=== PATIENT | male | born 1950 | race African-American/Black ===

== ENCOUNTER 2017-01-21 03:31 | Inpatient (IN) | payer OTHER ==
[~2017-01-21] VITALS: Ht 170.2 cm; Wt 69.8 kg
--- NOTE | ~2017-01-21 | HEMODYNAMI ---
PATIENT:OCHOA FARAH JR MEDICAL RECORD: [id number] : [birth year] [address] [id number] ADMISSION DATE: 01/21/17 Generatedon:01/22/201712:53 Patient name: OCHOA FARAH Patient #: [id number] SSN: DO B: 1950 Date of study: 01/22/2017 Page: Of Hemodynamic Procedure Report Patient Data Patient Demographics Procedure consent was obtained First Name: OCHOA Gender: Male Last Name: SOFI Suffix: Patient #: [id number] : 1950 Age: 66 year(s) Accession #: Race: Black [id number] Additional ID: [id number] Contact details [address]: [address] [place] [address] State: [place] City: [place] Zip code: [address] Past Medical History Allergies: No known allergies Admission Admission Data Admission Date: 01/21/2017 Admission Time: 6:16 Room #: [facility] Lab Results Lab Result Date: 01/22/2017 Lab Result Time: 0:00 Biochemistry Name Units Result Min Max Creatinine mg/dl 1.6 --(----)-* 0.6 1.3 CBC Name Units Result Min Max Hemoglobin g/dl 15.8 --(--*-)-- 13.5 17.5 Procedure Procedure Types Cath Procedure Diagnostic Procedure [facility] w/Coronaries PCI Procedure Coronary Stent Initial Miscellaneous Procedures Moderate Sedation up to 30 minutes Procedure Description Procedure Date Procedure Date: 01/22/2017 Procedure Start Time: 12:31 Procedure End Time: 12:53 Procedure Staff Name Function Onofre Benitez MD Performing Physician Torri Vera RT Scrub Dafne Penny RN Nurse Raven Araujo RT Monitor Procedure Data Cath Procedure Fluoroscopy Diagnostic fluoroscopy Total fluoroscopy Time: 4.1 time: 4.1 min min Diagnostic fluoroscopy Total fluoroscopy dose: 440 dose: 440 mGy mGy Contrast Material Contrast Material Type Amount (ml) Isovue 300 74 Entry Location Entry Primary Successful Side Size Upsize Upsize Entry Closure Succes sful Closure Location (Fr) 1 (Fr) 2 (Fr) Remarks Device Remarks Radial Right 6 Fr artery Short Femoral Left 7 Fr 7 Fr 7 Fr Exoseal artery Short Long Short Estimated blood loss: 10 ml Diagnostic catheters Device Type Used For End Catheter Placement Cordis RBL 4 catheter (NO LV Angiography CHARGE) Cordis RBL 4 catheter (NO Left Coronary CHARGE) Angiography Cordis RBL 4 catheter (NO Right Coronary CHARGE) Angiography Diagnostic Infinity 5Fr Procedure 3DRC catheter Procedure Complications No complications Procedure Medications Medication Administration Route Dosage Oxygen NC 2 l/min Lidocaine 2% added to field 20 Heparin Flush Bag added to field 2 bags (1000units/500ml NS) 0.9% NaCl I.V. 200 ml/hr Versed I.V. 0.5 mg Fentanyl I.V. 25 mcg Versed I.V. 0.5 mg Fentanyl I.V. 25 mcg Heparin Bolus I.V. 4000 units Radial Cocktail I.A. 1 syringe (Verapomil 2mg/Nitro 400mcg/Heparin 1500units) Hemodynamics Rest HGB: 15.8 (g/dl) Heart Rate: 71 (bpm) Snapshots Pre Cath Intra NCS Post Cath Vital Signs Time Heart Resp SPO2 NIBP (mmHg) Rhythm Pain Sedation Rate (ipm) (%) Status Level (bpm) 12:02:46 70 27 96 121/85(97) NSR 0 (11) 9(A) , No pain 12:06:50 71 21 98 119/86(104) NSR 0 (11) 9(A) , No pain 12:10:51 71 23 96 115/90(98) NSR 0 (11) 9(A) , No pain 12:14:54 70 20 97 121/85(100) NSR 0 (11) 9(A) , No pain 12:19:02 69 20 96 115/74(97) NSR 0 (11) 9(A) , No pain 12:23:10 68 20 96 108/67(95) NSR 0 (11) 9(A) , No pain 12:27:10 68 23 98 112/82(99) NSR 0 (11) 9(A) , No pain 12:31:11 70 21 98 106/80(97) NSR 0 (11) 9(A) , No pain 12:35:11 72 20 95 96/78(83) NSR 0 (11) 9(A) , No pain 12:39:11 71 21 93 96/68(85) NSR 0 (11) 9(A) , No pain 12:43:10 69 20 96 108/72(87) NSR 0 (11) 9(A) , No pain 12:47:14 72 21 96 88/72(81) NSR 0 (11) 9(A) , No pain 12:50:57 74 18 99 96/68(82) NSR 0 (11) 9(A) , No pain Medications Time Medication Route Dose Verified Delivered Reason Notes Effectiveness by by 12:01:56 Oxygen NC 2 l/min Onofre Buffie used for Eli Penny RN procedure 12:02:03 Lidocaine 2% added 20ml Onofre Buffie used for to vial Eli Penny RN procedure field 12:02:08 Heparin Flush added 2 bags Onofre Buffie used for Bag to Eli Penny RN procedure (1000units/500ml field NS) 12:02:16 0.9% NaCl I.V. 200 Onofre Headie Per ml/hr Eli Penny RN physician 12:26:21 Versed I.V. 0.5 mg Onofre Buffie for sedation Eli Penny RN 12:26:27 Fentanyl I.V. 25 mcg Onofre Leos for sedation Eli Penny RN 12:32:36 Versed I.V. 0.5 mg Onofre Buffie for sedation Eli Penny RN 12:32:40 Fentanyl I.V. 25 mcg Onofre Leos for sedation Eli Penny RN 12:33:53 Radial Cocktail I.A. 1 Onofre Adhikari for (Verapomil syringe Eli Benitez MD vasodilation 2mg/Nitro 400mcg/Heparin 1500units) 12:42:31 Heparin Bolus I.V. 4000 Onofre Buffie for sedation verifie d units Eli Penny RN with dr benitez Procedure Log Time Note 11:36:40 Raven Araujo RT(R) sent for patient. Start room use. 11:36:41 Time tracking: Regular hours 11:36:45 Plan of Care:Hemodynamics will remain stable., Cardiac rhythm will remain stable., Comfort level will be maintained., Respiratory function will remain adequate., Patient/ family verbilizes understanding of procedure., Procedure tolerated without complication., Recovers from procedure without complications.. 12:01:39 Patient received from PCU to CCL 2 Alert and oriented. Tansferred to table in Supine position. 12:01:40 Warm blankets applied, and shari hugger turned on for patient comfort. 12:01:40 Correct patient and procedure confirmed by team. 12:01:41 Signed procedure consent form obtained from patient. 12:01:42 ECG and BP/O2 sat monitors applied to patient. 12:01:43 Vital chart was started 12:01:44 Full Disclosure recording started 12:01:56 Oxygen 2 l/min NC was given by Dafne Penny RN; used for procedure; 12:02:03 Lidocaine 2% 20ml vial added to field was given by Dafne Penny RN; used for procedure; 12:02:08 Heparin Flush Bag (1000units/500ml NS) 2 bags added to field was given by Dafne Penny RN; used for procedure; 12:02:16 0.9% NaCl 200 ml/hr I.V. was given by Dafne Penny RN; Per physician; 12:03:35 H&P Date Dictated: 01/22/2017 Within 30 days and on chart.. 12:03:37 Pre-procedure instructions explained to patient. 12:03:37 Pre-op teaching completed and patient verbalized understanding. 12:03:38 Family in waiting room. 12:03:40 Patient NPO since Midnight. 12:03:48 Patient allergic to No known allergies 12:03:54 Is the patient allergic to Iodine/contrast media? No. 12:03:55 Is patient on blood thinner?Yes 12:03:58 ACC The patient was administered the following blood thiners within the last 24 hours: ACCPlavix 12:04:02 Patient diabetic? No. 12:04:06 Previous problem with sedation/anesthesia? No ? 12:04:08 Snore? No 12:04:09 Sleep apnea? No 12:04:10 Deviated septum? No 12:04:11 Opens mouth fully? Yes 12:04:11 Sticks out tongue? Yes 12:04:14 Airway obstruction? No ? 12:04:15 Dentures? No ? 12:04:19 Pre procedure: left dorsailis pedis pulse 2+ Normal; easily identifiable; not easily obliterated 12:04: Modified Martin's test Ulnar < 7 seconds 12:04:23 Patient pain scale 0/10 ?. 12:04:30 IV patent on arrival in left forearm with 0.9% NaCl at [facility]. 12:05:29 Lab Result : Creatinine 1.6 mg/dl 12:05:29 Lab Result : Hemoglobin 15.8 g/dl 12:05:33 Lab results completed and on chart. 12:05:38 Right Radial & Left Groin area was prepped with chlora-prep and draped in sterile fashion 12:05:40 Alarms reviewed by R. N. 12:05:40 Sharps counted by scrub and verified by R.N. 12:05:42 Use device set Radial Dx 12:05:43 Acist Syringe opened to sterile field. 12:05:43 Medline Cath Pack opened to sterile field. 12:05:44 Bag Decanter opened to sterile field. 12:05:44 Terumo 6Fr Slender Glidesheath opened to sterile field. 12:05:44 St Darrell 260cm J .035 wire opened to sterile field. 12:05:45 Acist Hand Control opened to sterile field. 12:05:45 Acist Manifold opened to sterile field. 12:05:46 Tegaderm 4 x 4 opened to sterile field. 12:07:52 Baseline sample Acquired. 12:10:01 Zero performed for pressure channel P1 12:10:06 Zero performed for pressure channel P1 12:10:10 Zero performed for pressure channel P1 12:10:35 Zero performed for pressure channel P1 12:24:44 Final Timeout: patient, procedure, and site verified with staff and physician. All members of the team are in agreement. 12:24:47 Right Radial site verified by team. 12:24:50 Physical assessment completed. ASA score P 3 - A patient with severe systemic disease as per Onofre Bneitez MD. 12:24:53 Sedation plan: IV Moderate Sedation Versed, Fentanyl 12::21 Versed 0.5 mg I.V. was given by Dafne Penny RN; for sedation; 12::27 Fentanyl 25 mcg I.V. was given by Dafne Penny RN; for sedation; 12:31:20 Procedure started. 12:31:47 Local anesthetic to right radial artery with Lidocaine 2% by Onofre Benitez MD.INITIAL ACCESS ONLY 12:32:36 Versed 0.5 mg I.V. was given by Dafne Penny RN; for sedation; 12:32:40 Fentanyl 25 mcg I.V. was given by Dafne Penny RN; for sedation; 12:32:46 A 6 Fr Short sheath was inserted into the Right Radial artery 12:33:53 Radial Cocktail (Verapomil 2mg/Nitro 400mcg/Heparin 1500units) 1 syringe I.A. was given by Onofre Benitez MD; for vasodilation; 12:33:54 A Cordis RBL 4 catheter (NO CHARGE) was advanced over the wire and used for LV Angiography. 12:34:34 LV gram done using BHAT 12:34:35 LV hemodynamics recorded. 12:34:38 Injector settings: Ml/sec: 5, Volume: 15, 12:34:42 EF : 60 % 12:34:48 A Cordis RBL 4 catheter (NO CHARGE) was advanced over the wire and used for Left Coronary Angiography. 12:35:45 A Cordis RBL 4 catheter (NO CHARGE) was advanced over the wire and used for Right Coronary Angiography. 12:36:01 Catheter removed. 12:36:33 Coub BasixCompak Inflation Kit opened to sterile field. 12:36:35 Terumo 7Fr [place]omb Sheath opened to sterile field. 12:36:35 Farrar Whisper J 300cm 0.014 guide wire opened to sterile field. 12:36:51 Local anesthetic to left femerol artery with Lidocaine 2% by Onofre Benitez MD.ADDITIONAL ACCESS 12:37:03 A 7 Fr Short sheath was inserted into the Left Femoral artery 12:38:59 A Diagnostic Infinity 5Fr 3DRC catheter was advanced over the wire and used for Procedure. 12:39:49 Sheath upsized to a 7 Fr Long. 12:40:01 Arrow 7Fr 45cm Sheath opened to sterile field. 12:40:08 Medtronic Launcher 7Fr AR 2.0 guide catheter opened to sterile field. 12:40:50 7 Fr AR 2.0 guide catheter was inserted over the wire 12:42:31 Heparin Bolus 4000 units I.V. was given by Dafne Penny RN; for sedation; verified with dr benitez 12:43:01 Choice PT ES wire advanced. 12:44:17 Inflation number: 1 A Euphora 4.0 x 20 Balloon was prepped and advanced across the Mid RCA, then inflated to 9 DONTRELL for 0:06 (min:sec). 12:44:32 Balloon removed over the wire. 12:45:55 Inflation Number: 2 A Medtronic Integrity 4.0 X 22 stent was prepped and advanced across the Mid RCA. The stent was deployed at 0 DONTRELL for 0:08 (min:sec). 12:46:07 Stent catheter was removed intact over wire. 12:46:07 Wire removed. 12:46:08 Guide catheter removed. 12:46:23 Cordis 7Fr Exoseal opened to sterile field. 12:46:30 Sheath upsized to a 7 Fr Short. 12:46:39 Sheath removed intact; hemostasis achieved with Exoseal to the Left Femoral artery. 12:46:41 Procedure ended.(Physican Out) 12:47:03 Fluoroscopy time 04.10 minutes. 12:47:13 Fluoroscopy dose: 440 mGy 12:47:13 Flurop Dose total: 440 12:47:16 Contrast amount:Isovue 300 74ml. 12:47:17 Sharps counted by scrub and verified by R.N. 12:47:19 Insertion/operative site no bleeding no hematoma. 12:47:23 TR band inflated with 12cc of air. 12:47:30 Terumo TR Band Standard opened to sterile field. 12:47:36 Post-op/insertion site Left Femoral artery dressed using a 4 x 4 and Tegaderm. 12:47:41 Post left femerol artery:stable, clean and dry 12:47:47 Post right radial artery:stable, clean and dry 12:47:57 Post Procedure Pulses reassessed and unchanged 12:48:02 Post-procedure physical assessment completed. ASA score P 3 - A patient with severe systemic disease as per Onofre Benitez MD. 12:48:04 Post procedure rhythm: unchanged. 12:48:08 Estimated blood loss: 10 ml 12:48:09 Post procedure instruction explained to patient.Patient verbalizes understanding. 12:48:10 Patient needs reinforcement of post procedure teaching. 12:48:18 Procedure type changed to Cath procedure, Diagnostic procedure, LHC, LHC w/Coronaries, PCI procedure, Coronary Stent Initial, Miscellaneous Procedures, Moderate Sedation up to 30 minutes 12:48:23 Procedure Complication : No complications 12:48:24 See physician's report for complete and final results. 12:52:59 Procedure and supply charges have been captured, reviewed, submitted and are correct. 12:53:00 Vital chart was stopped 12:53:02 Report given to PCU. 12:53:05 Patient transfered to PCU with Bed. 12:53:07 Procedure ended. 12:53:07 Full Disclosure recording stopped 12:53:13 End room use (Document Last) Intervention Summary Intervention Notes Time ActionType Lesion and Equipment Action# Pressure Duration Attributes Used 12:44:17 Inflate Mid RCA Euphora 1 9 00:06 balloon 4.0 x 20 Balloon 12:45:55 Place stent Mid RCA Medtronic 2 0 00:08 Integrity 4.0 X 22 stent Device Usage Item Name Manufacture Quantity Catalog Hospital Part Current Minimal Lot# / Number Charge Number Stock Stock Serial# Code Acist Acist 1 12742 [id number] 145421 566580 20 Syringe Medical Systems Inc Medline Cardinal 1 [id number] 692671 80645 863055 5 Cath Pack Health Bag Microtek 1 2002S 241391 73181 839039 5 [employer] Inc. Terumo 6Fr Terumo 1 [id number] 173606 633447 141517 [address] Dar[address] St Darrell 1 [id number] 031949 236939 767996 30 260cm J .035 wire Acist Hand Acist 1 15717 356956 733509 013862 5 Control Medical Systems Inc Acist Acist 1 91267 576317 279397 298307 5 Manifold Medical Systems Inc Tegaderm 4 3M 1 1626W 653822 891354 360510 5 x 4 Cordis RBL Cardinal 1 [id number] 126399 685058 5 4 catheter Health (NO CHARGE) Merit Merit 1 [id number] 036782 645333 866356 15 Mob[employer]ixSou[employer] Medical Inflation Kit Terumo 7Fr Terumo 1 [id number] 574606 731984 786941 5 Macomb Sheath Farrar Farrar 1 [id number] 559057 706186 659799 5 Whisper J Vascular 300cm 0.014 guide wire Diagnostic Cardinal 1 [id number] 102462 152738 290904 9 [employer] 5Fr 3DRC catheter Arrow 7Fr Teleflex 1 [id number] 340146 695273 939471 1 45cm Sheath Medtronic Medtronic 1 [id number] 664897 385014 315199 0 Launcher 7Fr AR 2.0 guide catheter Euphora 4.0 Medtronic 1 [id number] 410894 431403 159993 5 [id number] x 20 Balloon Medtronic Medtronic 1 [id number] 115828 510583 875065 7 [id number] Integrity 4.0 X 22 stent Cordis 7Fr Cardinal 1 EX700 357976 229908 201089 5 Librestream Technologies Inc.umo TR Terumo 1 [id number] 068860 979820 913608 40 Band Standard Signature Audit [place] Stage Time Signature Unsigned Intra-Procedure 01/22/2017 Raven 12:53:31 PM Counts RT(R) Signatures Monitor : Raven Signature : Counts RT Date : Time : [place] [address] [place] [address]
[~2017-01-21 03:31] MED LIST: ANUSOL-HC25 MG RC; LEVAQUIN500 MG PO; NICODERM C1 PATCH .2 TRANSDERM; NORVASC2.5 MG PO
[2017-01-21 04:33] LABS: BASOPHILS 0.2 % (0.0-2.0); EOSINOPHILS 0.5 % (0-7); HEMATOCRIT 44.2 % (42.0-54.0); HEMOGLOBIN 13.7 g/dL (13.5-17.5); IMMATURE GRANULOCYTES 0.2 % (0-5); LYMPHOCYTES 11.5 % (15-50); MCH 23.2 pg (26.0-34.0); MCV 74.8 fL (80.0-100.0); MEAN PLATELET VOLUME 11.1 fL (7.4-10.4); MONOCYTES 7.5 % (2-11); NEUTROPHILS 80.1 % (40-80); PLATELET COUNT 226 10x3/uL (130-400); RBC 5.91 10x6/uL (4.20-6.10); RDW 17.1 % (11.5-14.5); WBC 8.8 10x3/uL (4.8-10.8)
[2017-01-21 04:40] LABS: ALBUMIN 3.9 g/dL (3.4-5.0); ANION GAP 16.4 mmol/L (8-16); BILIRUBIN - TOTAL 0.74 mg/dL (0.2-1.3); CALCIUM 9.1 mg/dL (8.5-10.1); CARBON DIOXIDE 25.3 mmol/L (21.0-32.0); CREATININE - SERUM 1.2 mg/dL (0.6-1.3); POTASSIUM - SERUM 3.7 mmol/L (3.5-5.1); PROTEIN - SERUM 7.8 g/dL (6.4-8.2)
[2017-01-21 04:48] LABS: MAGNESIUM - SERUM 1.8 mg/dL (1.8-2.4); TROPONIN-I 0.032 ng/mL (0.000-0.060)
--- NOTE | 2017-01-21 07:22 | NUR ---
RECEIVED PATIENT FROM ER. WILL ASSESS AND CARRY OUT ORDERS.
[2017-01-21 07:44] VITALS: BP 148/96; BMI 24.2
[2017-01-21 08:49] VITALS: BP 148/96
[2017-01-21 12:45] VITALS: BP 149/93
[2017-01-21 13:41] VITALS: Ht 170.2 cm; Wt 69.8 kg
--- NOTE | 2017-01-21 14:47 | NUR ---
Patient Name: OCHOA FARAH Admission Status: ER Accout number: [id number] Admission Date: 01-21-2017 : 1950 Admission Diagnosis: Attending: DULCE Current LOS: 1 Anticipated DC Date: Planned Disposition: [place] facility Primary Insurance: [employer] Discharge Planning Comments: * Is the patient Alert and Oriented? Yes 0 * How many steps to enter\exit or inside your home? 6 0 * PCP [facility] [place] NO LOCAL PRIMARY DOCTOR 0 * Pharmacy [facility]. 0 * Preadmission Environment Home with Family 0 * ADLs Independent 0 * Equipment None 0 * Other Equipment [facility] - MEDICAL EQUIPMENT PROVIDER 0 * List name and contact numbers for known caregivers / representatives who currently or will assist patient after discharge: JANE MARTIN, MOTHER, 0 * Community resources currently utilized None 0 * Please name any agencies selected above. NONE 0 * Additional services required to return to the preadmission environment? No 0 * Can the patient safely return to the preadmission environment? Yes 0 * Has this patient been hospitalized within the prior 30 days at any hospital? No 0 CM MET WITH PT IN ROOM TO DISCUSS DISCHARGE PLANNING AND NEEDS. PT REPORTS LIVING AT HOME INDEPENDENTLY WITH HIS MOTHER AND CHILDREN. PT HAS NO MEDICAL EQUIPMENT AND NO OUTSIDE SERVICES ASSISTING IN THE HOME. CM DISCUSSED AVAILABILITY OF HOME HEALTH, REHAB SERVICES AND MEDICAL EQUIPMENT. PT DENIES DISCHARGE NEEDS, PT REPORTS HIS FAMILY OR A FRIEND WILL PICK HIM UP FOR DISCHARGE HOME. PT REPORTS PRIMARY CARE FROM [facility] IN [place], WHEN HE RECEIVES PRIMARY CARE. PT REPORTS HIS INSURANCE COMPANY SENT HIM A CARD WITH DR. MCLEAN'S NAME ON IT HIS DOCTOR. CM EXPLAINED THAT UNLESS PT HAS SEEN DR. MCLEAN IN CLINIC AND HE HAS ACCEPTED PT, DR. MCLEAN IS NOT HIS PRIMARY CARE DOCTOR. CM PROVIDED PT WITH [facility] INFORMATION TO ASSIST WITH LOCATING [facility] C[facility]IDE [facility] IF THAT IS WHAT THE PT DESIRES. PT REPORTS HE WANTS TO TRANSFER TO [facility] H[facility] IF AND WHEN THEY HAVE A BED AVAILABLE. BRI DAMON HAS CALLED [facility] EXPEDITOR AND PROVIDED PT INFORMATION WITH TRANSFER REQUEST, THERE WAS NO [facility] BED AVAILABLE. CM TO CONTINUE TO FOLLOW AND ASSIST NEEDED. Information Technology Director: Ferdinand Felix
[2017-01-21 15:44] VITALS: BP 140/98
--- NOTE | 2017-01-21 16:52 | NUR ---
SCDS APPLIED TO GIANA LE. RESTING IN BED. SOME SOB.
--- NOTE | 2017-01-21 19:35 | NUR ---
RECEIVED REPORT, IV-LAC, HAS SCD ON, DENIES ANY NEEDS, CALL LIGHT IN REACH, WILL CONTINUE TO MONITOR
[2017-01-21 20:00] VITALS: BP 160/99
[2017-01-22] VITALS: BP 148/86
--- NOTE | 2017-01-22 00:14 | NUR ---
SPECIAL TAX AUDITOR AT BEDSIDE TO OBTAIN VITALS, CALL LIGHT IN REACH. WILL CONTINUE WITH PLAN OF CARE.
[2017-01-22 04:00] VITALS: BP 110/80
[2017-01-22 04:58] LABS: BASOPHILS 0.1 % (0.0-2.0); EOSINOPHILS 0 % (0-7); HEMATOCRIT 50.1 % (42.0-54.0); HEMOGLOBIN 15.8 g/dL (13.5-17.5); IMMATURE GRANULOCYTES 0.4 % (0-5); LYMPHOCYTES 8.2 % (15-50); MCH 23.5 pg (26.0-34.0); MCHC 31.5 g/dL (31.0-37.0); MCV 74.4 fL (80.0-100.0); MEAN PLATELET VOLUME 11.4 fL (7.4-10.4); MONOCYTES 12.7 % (2-11); NEUTROPHILS 78.6 % (40-80); PLATELET COUNT 233 10x3/uL (130-400); RDW 17.3 % (11.5-14.5); WBC 8.4 10x3/uL (4.8-10.8)
[2017-01-22 05:08] LABS: RBC 6.73 10x6/uL (4.20-6.10)
[2017-01-22 05:36] LABS: CALCIUM 9.5 mg/dL (8.5-10.1); CARBON DIOXIDE 27.2 mmol/L (21.0-32.0); CHLORIDE - SERUM 100 mmol/L (98-107); CKMB 16.9 U/L (0.0-3.6); GLUCOSE 136 mg/dL (74-106); POTASSIUM - SERUM 3.8 mmol/L (3.5-5.1); PRO BNP 712 pg/mL (0-125); SODIUM 140 mmol/L (136-145)
[2017-01-22 05:40] LABS: CALC OSMOLALITY 287 mosm/kg (275-300); CREATININE - SERUM 1.6 mg/dL (0.6-1.3); UREA NITROGEN 31 mg/dL (7-18); eGFR NON AFRICAN AMERICAN 46 mL/min (90-120)
[2017-01-22 05:41] LABS: TROPONIN-I 0.074 ng/mL (0.000-0.060)
--- NOTE | 2017-01-22 07:21 | NUR ---
PT SITTING UP IN BED DENIES NEEDS WILL CONT TO MONITOR.
--- NOTE | 2017-01-22 07:34 | HP ---
PATIENT: OCHOA FARAH JR MEDICAL RECORD: [id number] ACCOUNT: [id number] LOCATION:[address] : [birth year] ADMISSION DATE: 01/21/17 HISTORY AND PHYSICAL EXAMINATION Admission History and Physical HISTORY OF PRESENT ILLNESS: A 66-year-old -L[place] male presented to the Emergency Room early this morning with a complaint of chest pain, shortness of breath that has been happening off and on for the past several weeks. He has a remote history of coronary artery disease, had 2 stents placed. 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 He is rare to seek medical care and again [facility], but has not been there in sometime as well. MEDICATIONS: No current medications. ALLERGIES: No known drug allergies. REVIEW OF SYSTEMS: GENERAL: No acute change in weight or appetite. HEENT: No cephalgia, visual changes, tinnitus, epistaxis, or dysphagia. CARDIOVASCULAR: Episodic chest pain, pressure, known history of coronary artery disease, also shortness of breath, worse for the past 2 weeks, much worse this morning, leading to his presentation to the ER. PULMONARY: Denies hemoptysis. Denies night sweats. GASTROINTESTINAL: Denies hematemesis, hematochezia, or melena. GENITOURINARY: Denies any acute changes. History as above. ENDOCRINE: Denies polyuria, polydipsia, or polyphagia. MUSCULOSKELETAL: No acute changes. PHYSICAL EXAMINATION VITAL SIGNS: Temperature 99.9, blood pressure 148/96, respirations 22, heart rate 104, and O2 sats 93% with 2 liters via nasal cannula. HEENT: Head normocephalic and atraumatic. Eyes: Pupils equally round, reactive to light and accommodation. Extraocular muscles intact. Conjunctiva was not injected. Ears: Canals patent, TMs are intact. Nose: Nares patent without drainage. Throat: No erythema. No exudates. NECK: Supple. No lymphadenopathy. HEART: Regular and tachycardic. LUNGS: Clear to auscultation bilaterally, slightly diminished at the bases. No rhonchi. No egophony. ABDOMEN: Soft and nontender. Bowel sounds all 4 quadrants. EXTREMITIES: Present times 4. No edema. NEUROLOGIC: No focal deficits. SKIN: Warm and dry. No rash. DIAGNOSTIC DATA: Chest x-ray, mild central pulmonary vascular congestion and interstitial edema. EKG, nonspecific ST changes, rate 100, poor R-wave progression, abnormal EKG. LABORATORY DATA: CBC: White count 8.8, hemoglobin 13.7, hematocrit 44.2, and platelets 226. Chemistry shows a sodium of 139, potassium 3.7, chloride 101, bicarbonate 25.3, BUN 10, and creatinine 1.2. LFTs normal. ProBNP is slightly HISTORY AND PHYSICAL [id number] OCHOA FARAH JR elevated at 368. Troponin is 0.032. CK is 140. ASSESSMENT AND PLAN: 1. Unstable angina with known history of coronary artery disease, remote stents, consult cardiology, cycle enzymes. 2. Mild congestive heart failure. Cautious diuresis. 3. Hypertension. Lisinopril started. With the tachycardia, we will add low-dose beta-pop. 4. Prostate cancer, unclear of his current status. We will check PSA with this hospitalization. The patient is admitted as med on, unassigned medicine will follow accordingly. TRANSINT:[id number] Voice Confirmation ID: [id number] DOCUMENT ID: [id number] SHAMEKA GUTIERREZ DO at 0734 CC: [id number] DICTATION DATE: 01/21/17 1147 AVIATION TECHNICIAN AIRCRAFT: 01/21/17 1227 [place] [address]
[2017-01-22 07:49] VITALS: BP 133/71
--- NOTE | 2017-01-22 13:17 | NUR ---
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 TWO SITES R WRIST CDI& L GROIN CDI WITH NO EDEMA ON EITHER. DROWSY BUT AROUSEABLE. VS STABLE. WARM AND DRY O2 ON @ 2L. MONITOR ON WITH RATE OF 57 SR WITH INVERTED T WAVE. WILL CONTINUE TO MONITOR
--- NOTE | 2017-01-22 13:48 | NUR ---
PT VS WNL. PT R WRIST TR BAND SITE STILL WNL. DENIES NEEDS.
--- NOTE | 2017-01-22 14:56 | NUR ---
PT VS STILL WNL. PT STILL LETHARGIC BUT ARROUSES EASILY. PT R WRIST SITE WNL. PT LEFT GROIN SITE WNL.
--- NOTE | 2017-01-22 18:17 | NUR ---
RELEASED 6CC OF AIR FROM TR BAND NO S/S BLEEDING PT VS STILL WNL. PT SITTING UP IN BED. LEFT GROIN SITE STILL WNL. VISITOR IN ROOM. PT DENIES NEEDS AT THIS TIME
[2017-01-22 20:00] VITALS: BP 112/75
[2017-01-23] VITALS: BP 116/78
[2017-01-23 04:00] VITALS: BP 89/67
[2017-01-23 06:17] LABS: BASOPHILS 0.3 % (0.0-2.0); EOSINOPHILS 0 % (0-7); HEMOGLOBIN 14.5 g/dL (13.5-17.5); IMMATURE GRANULOCYTES 0.3 % (0-5); LYMPHOCYTES 14.1 % (15-50); MCH 23.6 pg (26.0-34.0); MCHC 31.5 g/dL (31.0-37.0); MCV 74.8 fL (80.0-100.0); MEAN PLATELET VOLUME 11.1 fL (7.4-10.4); MONOCYTES 15.1 % (2-11); NEUTROPHILS 70.2 % (40-80); PLATELET COUNT 204 10x3/uL (130-400); RBC 6.15 10x6/uL (4.20-6.10); RDW 17.4 % (11.5-14.5); WBC 6.9 10x3/uL (4.8-10.8)
[2017-01-23 06:38] LABS: ANION GAP 17.1 mmol/L (8-16); CARBON DIOXIDE 21.9 mmol/L (21.0-32.0); CREATININE - SERUM 1.8 mg/dL (0.6-1.3)
[2017-01-23] MEDS ORDERED: PLAVIX75 MG PO (07:23)
[2017-01-23] MEDS ORDERED: TENORMIN25 MG PO (07:24)
[2017-01-23] MEDS ORDERED: ASPIRIN81 MG PO (07:24)
--- NOTE | 2017-01-23 07:33 | NUR ---
PT SITTING UP IN BED DENIES NEEDS WILL CONT TO MONITOR.
[2017-01-23 08:13] VITALS: BP 96/66
[2017-01-23 11:52] VITALS: BP 101/70
--- NOTE | 2017-01-23 11:55 | NUR ---
WENT OVER DC PAPERWORK WITH PT PT VERBALIZES UNDERSTANDING. DC TELE DC PIV WITH CATHETER TIP INTACT. PT GETTING DRESSED AND WAITING ON RIDE.
--- NOTE | 2017-01-23 15:11 | NUR ---
Patient Name: OCHOA FARAH Encounter No: [id number] : 1950 Primary Insurance: [employer] Anticipated DC Date: 01-23-2017 Planned Disposition: Home DCP follow-up note: PT DISCHARGED HOME. CM CALLED [place] EXP[facility]OR [facility], , NOTIFIED [facility] AND REMOVED PT FROM TRANSFER LIST. Ferdinand Felix, CASE MANAGEMENT
--- NOTE | 2017-01-23 15:12 | NUR ---
PT RIDE HERE. VOLUNTEER WHEELED PT OUT TO FRONT ENTRANCE.
--- NOTE | 2017-01-27 07:49 | DS ---
PATIENT:OCHOA FARAH JR :50 MEDICAL RECORD: [id number] DISCHARGE SUMMARY ADMISSION DATE: 01/21/17 DISCHARGE DATE: 01/23/17 DATE OF ADMISSION: 01/21/2017 DATE OF DISCHARGE: 01/23/2017 ADMISSION DIAGNOSES: Unstable angina with known history of coronary artery disease, mild congestive heart failure, hypertension, remote history of prostate cancer. DISCHARGE DIAGNOSES: Unstable angina with history of coronary artery disease, hypertension, history of prostate cancer with no signs of reoccurrence. CONSULTS: Dr. Benitez, cardiology. HOSPITAL COURSE: The patient had an uneventful hospital course. He is [facility], rare to seek medical care. Cardiac enzymes were obtained. Mild elevation of BNP. Complained of persistent chest pain and pressure. Cardiology consulted. Echocardiogram obtained. No significant abnormalities. 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 DISPOSITION: Discharged to home in stable and improved condition. FOLLOWUP: Will follow up with the [facility] within the next few weeks for up with cardiology as scheduled. DISCHARGE MEDICATIONS: Per med rec. ACTIVITY: As tolerated. Please see chart for further details. Agree with the assessment by cardiology. TRANSINT:[id number] Voice Confirmation ID: [id number] DOCUMENT ID: [id number] SHAMEKA GUTIERREZ DO at 0749 CC: [id number] DICTATION DATE: 01/23/17 0729 INSURANCE SALES MANAGER: 01/24/17 0038 DIS [place] 01/23/17 [place] [id number]
--- NOTE | 2017-02-02 10:08 | OP ---
PATIENT NAME: OCHOA FARAH JR MEDICAL RECORD: [id number] :50 LOCATION:D.M2 D.2131 ADMISSION DATE:01/21/17 SURGEON: REINALDO FRANCIS MD DATE OF OPERATION: 01/22/2017 PROCEDURES: 1. PTCA stent, RCA. 2. Left heart catheterization. 3. Selective coronary angiography. 4. Left ventriculogram. INDICATIONS: Angina and coronary artery disease. PROCEDURE IN DETAIL: After informed consent was obtained and after detailed explanation of risks, benefits as well as alternative therapies, the patient elected to proceed with angiogram and angioplasty. The left femoral area was prepped and draped in normal sterile fashion. Left femoral artery was cannulated via modified Seldinger technique with placement of a 7-Urdu sheath. All catheters exchanged through this sheath. FINDINGS: The left ventriculogram was performed in standard 30-degree BHAT view, reveals good cardiac wall motion throughout all segments. Overall ejection fraction estimated 60%. SELECTIVE CORONARY ANGIOGRAPHY: 1. Left main showed no significant angiographic disease. 2. Left anterior descending has moderate irregularities, but no flow-limiting stenosis. 3. The left circumflex shows moderate irregularities, but no flow-limiting stenosis. 4. Right coronary has 70%-80% stenosis in the mid vessel after the previously placed stent. PTCA STENT OF THE RIGHT CORONARY: The stent used was a 4.0 x 22 mm Integrity. Result was 0% residual stenosis. OVERALL IMPRESSION: Successful percutaneous transluminal coronary angioplasty stent of the right coronary artery going from 70%-80% initial stenosis to 0% residual. TRANSINT:[id number] Voice Confirmation ID: [id number] DOCUMENT ID: [id number] REINALDO FRANCIS MD at 1008 CC: [id number] DICTATION DATE: 01/22/17 1253 PIN DRAFTER OPERATOR: 01/22/172030 DIS IN 01/23/17 [place] [address]
--- NOTE | 2017-02-02 10:08 | CN ---
PATIENT NAME:OCHOA CURTIS JR MEDICAL RECORD: [id number] : 50 LOCATION:D. D.2131 ADMIT DATE: 01/21/17 ACCOUNT: [id number] CONSULTING PHYSICIAN: REINALDO FRANCIS MD REFERRING PHYSICIAN: SHAMEKA GUTIERREZ DO DATE OF CONSULTATION: 01/21/2017 Cardiology Consultation DIAGNOSES: 1. Unstable angina. 2. Pulmonary edema. 3. Coronary artery disease, previous percutaneous transluminal coronary angioplasty stent. 4. Hypertension. HISTORY OF PRESENT ILLNESS: Mr. Curtis presents with increasing shortness of breath and unstable anginal symptomatology. He has a history of cardiac stenting a number of years ago times 2. His chest pain just began yesterday associated with shortness of breath. His chest x-ray is compatible with pulmonary edema. His troponin is normal. His breathing is still not back to baseline. He has not had any further chest pain today. PHYSICAL EXAMINATION: GENERAL APPEARANCE: Well-nourished, well-developed, appears stated age. Level of distress, comfortable. PSYCHIATRIC: Mental status, alert, normal affect. Orientation, oriented to time, place and person. EYES: Lids and conjunctiva, noninjected. No discharge, no pallor. ENT: Lips, teeth, gums, normal dentition. Oropharynx, no cyanosis, no pallor. NECK: Carotid arteries, bilateral normal upstroke, no bruits, no thrills. JUGULAR VEINS: No jugular venous pressure or distention. CERVICAL LYMPH NODES: Nontender, nonenlarged. THYROID: Not enlarged. Nontender. No nodules. LUNGS: Respiratory effort, unlabored. CHEST: Normal curvature. No thoracic deformity. No chest wall tenderness. Percussion, resonant. Auscultation, clear. No wheezes, no rales, no rhonchi. CARDIOVASCULAR: Precordial exam, nondisplaced. No heaves or pericardial thrills. Rate and rhythm, regular. Heart sounds, normal S1, normal S2. No S3, no gallop, no rub. Systolic murmur, not heard. Diastolic murmur, not heard. EXTREMITIES: No cyanosis, no edema. Peripheral pulses, full and equal in all extremities, except as noted. No bruits appreciated. ABDOMEN: Soft, nondistended. Normal aorta. No bruit. Nontender. No masses. Liver, nontender, no hepatomegaly. Spleen, nontender, no splenomegaly. MUSCULOSKELETAL: No joint tenderness. No joint swelling. No erythema. NEUROLOGICAL: Normal gait, normal strength, normal tone. SKIN: Warm and dry. REVIEW OF SYSTEMS: The patient reports easy bruising but reports no swollen glands. The patient reports no fever, no night sweats, no significant weight gain, no significant weight loss. No significant exercise tolerance. The patient reports no dry eyes, no irritation, no vision change. Patient reports no difficulty hearing and no ear pain. Patient reports no frequent nose bleeds or nose and sinus problems. Patient reports on arm pain on exertion. No shortness of breath while lying down. No history of heart murmur. Patient CONSULT REPORT [id number] OCHOA CURTIS JR reports no cough, no wheezing or coughing up blood. Patient reports no abdominal pain, no vomiting. Normal appetite. No diarrhea and not vomiting blood. No nausea and no constipation. Patient reports no incontinence. No difficulty urinating. No hematuria. No increased frequency. Patient reports no muscle aches. No weakness, no arthralgias, no back pain. No swelling of the extremities. Patient reports no abnormal mole, no jaundice, no rashes. Reports no loss of consciousness. No weakness and no numbness. No seizures, dizziness, or headaches. The patient reports no depression, no sleep disturbance, feeling safe in a relationship and no alcohol abuse. Patient reports on fatigue. Reports no runny nose or sinus pressure. No itching, no hives, and no frequent sneezing. OVERALL IMPRESSION: Unstable anginal symptomatology associated with pulmonary edema. We will get an echocardiogram today for ejection fraction, load him with Plavix, most likely proceed with coronary angiography in the a.m. TRANSINT:[id number] Voice Confirmation ID: [id number] DOCUMENT ID: [id number] REINALDO FRANCIS MD at 1008 CC: [id number] DICTATION DATE: 01/21/17 1244 DIRECT MAIL MANAGER: 01/21/17 1748 DIS IN 01/23/17 [place] [id number] [place] [id number]
--- NOTE | 2017-02-02 10:08 | EC ---
PATIENT:OCHOA FARAH JR DATE OF SERVICE: 01/21/17 SEX: M MEDICAL RECORD: [id number] DATE OF : 50 LOCATION:D.M2 D.213 AGE OF PATIENT: 66 ADMISSION DATE: 01/21/17 REFERRING PHYSICIAN: INTERPRETING PHYSICIAN: REINALDO BENITEZ MD ECHOCARDIOGRAM REPORT ECHO CHARGES 4 ECHO COMPLETE CLINICAL DIAGNOSIS: CHF ECHOCARDIOGRAPHIC MEASUREMENTS (adult normal given) AC root (d.<3.7cm) 3.4 LV Septum d (<1.2 cm> 1.3 Valve Excursion 2.0 LV Septum (systole) 2.0 Left Atria (s.<4.0cm> 3.0 LVPW d(<1.2cm) 1.2 RV (d.<2.3cm) 2.2 LVPW (sytole) 2.0 LV diastole(<5.6CM) 6.0 MV E-F(>70mm/sec) LV systole 3.7 LVOT Diameter 2.2 MV exc.(>10mm) Est.ejection fraction (50-75%) Pericardial Effusion N DOPPLER: LVIT A 83.0 E 45.0 LA RVSP 24.0 LVOT 94.0 AOP1/2T Asc. Ao 137 RVOT 75.0 RA PA 100 AV Gradient Peak 7.5 AV Mean 3.4 AV Area 2.3 MV Gradient Peak 5.9 MV Mean 1.8 MV Area COMMENTS: Lunchroom Food Service Supervisor: Bennett ZAMORAOE Neon Light Installer:1 Dr. Benitez TAPE# PACS DATE OF SERVICE: 01/21/2017 Echocardiogram FINDINGS: 1. Left ventricular chamber size is mildly dilated. Left ventricular systolic function is preserved. Overall ejection fraction estimated at 50%. 2. Left atrium, right atrium, and right ventricle chamber sizes are within normal limits. 3. Valvular structures have normal structure and motion. ECHOCARDIOGRAM REPORT [id number] OCHOA FARAH JR 4. Doppler interrogation only reveals trace to mild mitral regurgitation, no other valvular insufficiency or stenosis. 5. No evidence of pericardial effusion or left ventricular thrombus. TRANSINT:[id number] Voice Confirmation ID: [id number] DOCUMENT ID: [id number] REINALDO BENITEZ MD at 1008 CC: [id number] DICTATION DATE: 01/21/17 1441 COMMUNITY DEVELOPMENT SPECIALIST: 01/21/17 1648 DIS IN 01/23/17 [facility] [address] [place] [place] [address]
== END 2017-01-23 15:12 | disposition home or self-care (01) | DRG 249 ==
LOC: D.ER 03:31 → D.M2 06:16
PROVIDERS: Emergency Medicine; Internal Medicine Interventional Cardiology; ADMIT Family Medicine
PROC: B2111ZZ Fluoroscopy of Multiple Coronary Arteries using Low Osmolar Contrast (ICD-10-PCS; 2017-01-22)
PROC: B2151ZZ Fluoroscopy of Left Heart using Low Osmolar Contrast (ICD-10-PCS; 2017-01-22)
PROC: 02703DZ Dilation of Coronary Artery, One Artery with Intraluminal Device, Percutaneous Approach (ICD-10-PCS; principal; 2017-01-22 12:00)
PROC: 4A023N7 Measurement of Cardiac Sampling and Pressure, Left Heart, Percutaneous Approach (ICD-10-PCS; 2017-01-22 12:00)
DX: I25.110 Atherosclerotic heart disease of native coronary artery with unstable angina pectoris (principal); I50.32 Chronic diastolic (congestive) heart failure; Z95.5 Presence of coronary angioplasty implant and graft; I11.0 Hypertensive heart disease with heart failure; N28.9 Disorder of kidney and ureter, unspecified; Z85.46 Personal history of malignant neoplasm of prostate

== ENCOUNTER 2017-02-17 09:03 | Emergency (ER) | payer OTHER ==
[2017-01-21 13:41] VITALS: BMI 24.2
[~2017-02-17 09:03] MED LIST changes: +ASPIRIN81 MG PO; +PLAVIX75 MG PO; +TENORMIN25 MG PO
[2017-02-17 10:00] LABS: BASOPHILS 0.1 % (0.0-2.0); EOSINOPHILS 0.3 % (0-7); IMMATURE GRANULOCYTES 0.9 % (0-5); LYMPHOCYTES 14.4 % (15-50); MCHC 30.1 g/dL (31.0-37.0); MCV 76.6 fL (80.0-100.0); MONOCYTES 4.8 % (2-11); NEUTROPHILS 79.5 % (40-80); RBC 2.52 10x6/uL (4.20-6.10); RDW 15.7 % (11.5-14.5); WBC 15.1 10x3/uL (4.8-10.8)
[2017-02-17 10:08] LABS: APTT 30.7 SECONDS (22.8-39.4); INR 1.27 (0.85-1.17); PROTIME 15.8 SECONDS (11.6-15.0)
[2017-02-17 10:15] LABS: ALBUMIN 2.4 g/dL (3.4-5.0); ANION GAP 17.7 mmol/L (8-16); BILIRUBIN - TOTAL 0.12 mg/dL (0.2-1.3); CALCIUM 8.2 mg/dL (8.5-10.1); CARBON DIOXIDE 19.5 mmol/L (21.0-32.0); CREATININE - SERUM 1.4 mg/dL (0.6-1.3); POTASSIUM - SERUM 4.2 mmol/L (3.5-5.1); PROTEIN - SERUM 5.5 g/dL (6.4-8.2)
[2017-02-17 10:17] LABS: HEMATOCRIT 19.3 % (42.0-54.0); HEMOGLOBIN 5.8 g/dL (13.5-17.5); PLATELET COUNT 369 10x3/uL (130-400)
[2017-02-17 13:58] LABS: CKMB 0.5 U/L (0.0-3.6); TROPONIN-I 0.029 ng/mL (0.000-0.060)
== END 2017-02-17 13:20 | disposition short-term general hospital (02) ==
LOC: D.ER 09:03
PROVIDERS: Emergency Medicine
DX: K92.2 Gastrointestinal hemorrhage, unspecified (principal); E86.1 Hypovolemia; C61 Malignant neoplasm of prostate; I10 Essential (primary) hypertension

== ENCOUNTER 2018-12-14 01:32 | Emergency (ER) | payer OTHER ==
[~2018-12-14] VITALS: Ht 170.2 cm; Wt 72.7 kg
[2018-12-14 01:51] VITALS: Ht 170.2 cm; Wt 72.7 kg
[2018-12-14] MEDS ORDERED: PRINIVIL20 MG PO (01:52)
[2018-12-14] MEDS ORDERED: LIPITOR80 MG PO (01:52)
[2018-12-14] MEDS ORDERED: LIPITOR40 MG PO (01:52)
[2018-12-14 02:56] LABS: BASOPHILS 1.2 % (0-2); EOSINOPHILS 6.4 % (0-7); HEMATOCRIT 52.9 % (42.0-54.0); HEMOGLOBIN 17.1 g/dL (13.5-17.5); IMMATURE GRANULOCYTES 0.7 % (0-5); LYMPHOCYTES 27.3 % (15-50); MCHC 32.3 g/dL (31.0-37.0); MCV 77.2 fL (80.0-100.0); MEAN PLATELET VOLUME 9.9 fL (7.4-10.4); MONOCYTES 8.8 % (2-11); NEUTROPHILS 55.6 % (40-80); RDW 17.1 % (11.5-14.5); WBC 7.5 10x3/uL (4.8-10.8)
[2018-12-14 03:01] LABS: PLATELET COUNT 167 10x3/uL (130-400); RBC 6.85 10x6/uL (4.20-6.10)
[2018-12-14 03:12] LABS: ALBUMIN 3.8 g/dL (3.4-5.0); ANION GAP 18.3 mmol/L (8-16); BILIRUBIN - TOTAL 0.37 mg/dL (0.2-1.3); CALCIUM 8.8 mg/dL (8.5-10.1); CARBON DIOXIDE 22.6 mmol/L (21.0-32.0); CREATININE - SERUM 1.4 mg/dL (0.6-1.3); POTASSIUM - SERUM 3.9 mmol/L (3.5-5.1)
[2018-12-14 03:13] LABS: TROPONIN-I 0.03 ng/mL (0.000-0.060)
[2018-12-14 04:28] VITALS: BP 143/79
== END 2018-12-14 04:24 | disposition home or self-care (01) ==
LOC: D.ER 01:32
PROVIDERS: Family Medicine
DX: M54.12 Radiculopathy, cervical region (principal); F17.200 Nicotine dependence, unspecified, uncomplicated

== ENCOUNTER 2019-02-15 16:30 | Emergency (ER) | payer OTHER ==
[~2019-02-15] VITALS: Ht 170.2 cm; Wt 75.0 kg
[~2019-02-15 16:30] MED LIST changes: +LIPITOR40 MG PO; +LIPITOR80 MG PO; +PRINIVIL20 MG PO
[2019-02-15 16:32] VITALS: Ht 170.2 cm; Wt 75.0 kg
[2019-02-15 17:32] LABS: BASOPHILS 0.3 % (0-2); EOSINOPHILS 2.1 % (0-7); HEMATOCRIT 55.5 % (42.0-54.0); HEMOGLOBIN 17.7 g/dL (13.5-17.5); IMMATURE GRANULOCYTES 0.3 % (0-5); MCH 24.6 pg (26.0-34.0); MCHC 31.9 g/dL (31.0-37.0); MCV 77.2 fL (80.0-100.0); MEAN PLATELET VOLUME 10.3 fL (7.4-10.4); MONOCYTES 10.6 % (2-11); NEUTROPHILS 64.7 % (40-80); PLATELET COUNT 158 10x3/uL (130-400); RDW 17.8 % (11.5-14.5); WBC 8.7 10x3/uL (4.8-10.8)
[2019-02-15 17:55] LABS: INR 1.12 (0.85-1.17); PROTIME 13.9 SECONDS (11.6-15.0)
[2019-02-15 18:35] LABS: RBC 7.19 10x6/uL (4.20-6.10)
[2019-02-15 18:39] LABS: CALC OSMOLALITY 284 mosm/kg (275-300); CALCIUM 9.1 mg/dL (8.5-10.1); CARBON DIOXIDE 24.4 mmol/L (21.0-32.0); CHLORIDE - SERUM 107 mmol/L (98-107); CREATININE - SERUM 1.3 mg/dL (0.6-1.3); GLUCOSE 115 mg/dL (74-106); MAGNESIUM - SERUM 1.9 mg/dL (1.8-2.4); SODIUM 142 mmol/L (136-145); UREA NITROGEN 15 mg/dL (7-18); eGFR NON AFRICAN AMERICAN 58 mL/min (90-120)
[2019-02-15 18:40] LABS: ALBUMIN 3.7 g/dL (3.4-5.0); ALKALINE PHOSPHATASE 68 U/L (46-116); ALT (SGPT) 14 U/L (10-68); CREATINE KINASE 111 UL (21-232)
[2019-02-15 18:41] LABS: CKMB 0.8 U/L (0.0-3.6)
[2019-02-15 18:43] LABS: TROPONIN-I 0.104 ng/mL (0.000-0.060)
[2019-02-15 20:51] LABS: APPEARANCE HAZY (CLEAR); COLOR YELLOW (YELLOW); NITRITE POSITIVE (NEGATIVE); PROTEIN TRACE mg/dL (NEGATIVE)
[2019-02-15 20:52] LABS: BILIRUBIN NEGATIVE (NEGATIVE); GLUCOSE NEGATIVE (NEGATIVE); KETONE NEGATIVE (NEGATIVE); RED CELLS - URINE 0-5 /hpf (0-5); UROBILINOGEN NORMAL (NORMAL); WHITE CELLS - URINE 25-50 /hpf (0-5)
[2019-02-15 20:53] LABS: BACTERIA MODERATE /hpf (NONE SEEN)
[2019-02-15 20:55] LABS: UDS - AMPHET NEGATIVE QUAL (NEGATIVE); UDS - BARB NEGATIVE QUAL (NEGATIVE); UDS - BENZO NEGATIVE QUAL (NEGATIVE); UDS - COCAINE NEGATIVE QUAL (NEGATIVE); UDS - OPIATE NEGATIVE QUAL (NEGATIVE); UDS - PCP NEGATIVE QUAL (NEGATIVE); UDS - THC NEGATIVE QUAL (NEGATIVE)
[2019-02-16 00:09] VITALS: BP 138/94
== END 2019-02-16 00:11 | disposition other institution (70) ==
LOC: D.ER 16:30
PROVIDERS: Family Medicine
DX: I63.9 Cerebral infarction, unspecified (principal); G81.94 Hemiplegia, unspecified affecting left nondominant side; F10.10 Alcohol abuse, uncomplicated; R74.8 Abnormal levels of other serum enzymes

== ENCOUNTER → 2019-06-01 21:08 | Outpatient (CLI) | payer MEDICARE, OTHER ==
[2019-02-15 16:32] VITALS: BMI 25.9
[2019-06-01 21:44] LABS: BASOPHILS 0.1 % (0-2); EOSINOPHILS 3.2 % (0-7); HEMOGLOBIN 11.4 g/dL (13.5-17.5); IMMATURE GRANULOCYTES 0.3 % (0-5); MCH 23.1 pg (26.0-34.0); MCV 76.9 fL (80.0-100.0); MONOCYTES 7.2 % (2-11); NEUTROPHILS 74.2 % (40-80); RBC 4.94 10x6/uL (4.20-6.10); RDW 18.1 % (11.5-14.5); WBC 8.9 10x3/uL (4.8-10.8)
[2019-06-01 21:54] LABS: CALC OSMOLALITY 284 mosm/kg (275-300); CALCIUM 9.3 mg/dL (8.5-10.1); CARBON DIOXIDE 26.7 mmol/L (21.0-32.0); CHLORIDE - SERUM 107 mmol/L (98-107); PLATELET COUNT 324 10x3/uL (130-400); POTASSIUM - SERUM 4.1 mmol/L (3.5-5.1); SODIUM 144 mmol/L (136-145); UREA NITROGEN 14 mg/dL (7-18); eGFR NON AFRICAN AMERICAN 79 mL/min (90-120)
[2019-06-01 21:56] LABS: GLUCOSE 51 mg/dL (74-106)
== END | disposition home or self-care (01) ==
LOC: D.LABREF 21:08
PROVIDERS: ATTEND Family Medicine
DX: E88.9 Metabolic disorder, unspecified (principal)